=== PATIENT | male | born 1960 | race Caucasian/White ===

== ENCOUNTER 2024-06-27 08:22 | Emergency (ER) | payer MEDICARE, SELFPAY ==
[2024-06-27 08:28] VITALS: BP 163/99
--- NOTE | 2024-06-27 09:38 | ED.GENMED ---
History of Present Illness
General
Chief Complaint: Eye Problems
Source: patient
Exam Limitations: none
Time Seen by Provider: 06/27/24 09:18
Nursing documentation reviewed up to this point in time: agreed with
History of Present Illness
History of Present Illness:
63-year-old male with a history of hypertension and hypothyroidism presents with bilateral eye redness and itching, starting in the right eye yesterday mildly with drainage and then progressing to the left eye this morning. He also has some
swelling underneath his right eye which is nonpainful. He is not having any vision changes. When he blinks he feels a grittiness in his right eye. He was rubbing it frequently yesterday. Patient says he has had some URI symptoms over the last
several days as well which are improving. He did not test for COVID. He is not vaccinated for COVID. Patient did have a right retinal repair about 3 months ago. He is not having any changes to his vision other than some blurriness with the
drainage, when he wipes the drainage free he can see clearly. He is not having any fever or chills, periorbital eye significant swelling, eye restriction
Past History
Past History
ED Past Medical History: HTN and Hypothyroidism
Social History
Tobacco: Non-smoker
Alcohol: None
Review of Systems
Review of Systems
Allergies reviewed?: Yes
All Other Systems: Not applicable
Phy Exam
Physical Exam
Physical Exam:
GENERAL: Alert , in no apparent distress
EYE: pupils equal and reactive
Significant conjunctival injection and mild to moderate mucopurulent discharge from both eyes, the right thigh has ecchymotic appearance of the sclera
On Lutz lamp exam there is no fluorescein uptake bilaterally
EOMs are intact without pain
He does have a small amount of edema in the skin underneath his eye, not involving his eyelids, looks like dependent edema without a significant cellulitis
NECK: Supple
ENT: o/p clr, mmm.
CARDIAC: Regular rate and rhythm .
LUNGS: Clear breath sounds bilaterally, no acute respiratory distress, no wheezes/rales/rhonchi
SKIN: Warm and dry, skin intact.
PSYCH: Normal and appropriate interaction.
Course
Orders/Labs/Results
Orders:
Orders
06/27/24 10:06
Fluorescein Sodium [Ful-Yanci] 2 mg .ROUTE .STK-MED ONE
Tetracaine HCl [Tetracaine 0.5% Ophthalmic Solution] 1 drop .ROUTE .STK-MED ONE
Vital Signs
Initial and Last Documented VS:
Initial Vital Signs
Temp Pulse Resp BP Pulse Ox
36.6 C 67 18 163/99 100
06/27/24 08:28 06/27/24 08:28 06/27/24 08:28 06/27/24 08:28 06/27/24 08:28
Last Documented Vital Signs
Temp Pulse Resp BP Pulse Ox
36.6 C 67 18 163/99 100
06/27/24 08:28 06/27/24 08:28 06/27/24 08:28 06/27/24 08:28 06/27/24 08:28
MDM/Problems Addressed
Differential Diagnosis Includes:
Conjunctivitis, corneal abrasion, chemosis, periorbital cellulitis
MDM/Problems Addressed:
63-year-old male with bilateral conjunctivitis, it is probably viral in nature given how itchy it is and how quickly it spread but I will cover him with antibiotic drops. There is no signs of any corneal abrasion or foreign body, he has a normal
gross visual acuity
*Critical Care Note
Total Time (30-74mins, 75-104mins- exclusive of procedures): Not Applicable
ED Attending Note
-
Portions of this chart may have been created with voice recognition software.� Occasional wrong word or��sound alike� substitutions may have occurred due to the inherent limitations of voice recognition software.
Discharge Plan
Departure
Patient Disposition: Home (Routine Discharge)
Date of Disposition: 06/27/24
Time of Disposition: 09:55
Patient with high blood pressure during this ER visit?: No
Condition: Fair
Covid-19: Not Applicable
Discharge Problem:
Conjunctivitis
Instructions: Conjunctivitis (Pinkeye) (DC)
Prescriptions:
New
ofloxacin 0.3 % drops
2 drp ophthalmic (eye) QID 7 Days Qty: 5 0RF
Activity Restrictions/Additional Instructions:
Your pinkeye may be viral or bacterial. If it is viral the antibiotics will not help and you just needed to clear on its own. You can try a mix between cool and warm compresses to help with the discomfort. Trying to not rub your eye.
But to cover for bacterial conjunctivitis please use the drops as prescribed.
Return to the ER for vision loss or vision changes, fever, inability to open your eye because of swelling, inability to move your eye around and it socket because of pain or any kind of restriction, double vision, or any concern
Otherwise you can see your eye doctor this week
Interventions
Interventions:
*Risk Screen - Suicide Last Done: 06/27/24 08:28
*General Assessment Last Done: 06/27/24 08:28
*Neglect/Abuse Screening Last Done: 06/27/24 08:28
*ED COVID-19 Vaccine History Last Done: 06/27/24 08:28
*Nursing Disposition Last Done: 06/27/24 10:01
Discharge Date and Time
Discharge Date/Time: 06/27/24 10:01
Print Language: VINCENTIAN
== END 2024-06-27 10:01 | disposition home or self-care (01) ==
LOC: EMR 08:22
PROVIDERS: EMERGENCY PHYSICIAN Emergency Medicine; FAMILY PHYSICIAN Internal Medicine
DX: H10.9 Unspecified conjunctivitis (principal); I10 Essential (primary) hypertension; E03.9 Hypothyroidism, unspecified; Z28.310 Unvaccinated for COVID-19
CPT/HCPCS: 99283